=== PATIENT | male | born 1980 | race Caucasian/White ===

== ENCOUNTER → 2019-09-01 | Outpatient (CLI) | payer OTHER ==
--- NOTE | 2019-09-01 11:39 | 2DMMODE ---
[facility] [address] [place] [address] 2 D/M-MODE ECHOCARDIOGRAM Name: RAFIA GÓMEZ Room #: REG [facility]#: [id number] Admission: 09/01/19 Attend Phys: Curly Perry, Discharge: Date of : 78 Report #: [id number] THIS REPORT FOR: //name// APPROVED REPORT Study performed: 09/01/2019 10:12:20 EXAM: Comprehensive 2D, Doppler, and color-flow Echocardiogram Patient Location: Out-Patient Room #: Echo lab 2 Status: routine BSA: 2.11 HR: 66 bpm BP: 126/80 mmHg Rhythm: NSR Other Information Study Quality: Good Indications Syncope Echo Enhancing Agent Indication: Rule out Shunt Agent(s) / Amount(s) Used: Agitated Saline 7 cc 2D Dimensions RVDd: 38.75 mm IVSd: 8.41 (7-11mm) LVOT Diam: 26.17 (18-24mm) LVDd: 54.60 mm PWd: 7.76 (7-11mm) Ascending Ao: 36.58 (22-36mm) LVDs: 35.10 (25-40mm) Aortic Root: 33.76 mm IVC: 19.00 mm Volumes Left Atrial Volume (Systole) Single Plane 4CH: 30.45 mL Single Plane 2CH: 58.26 mL LA ESV Index: 25.00 mL/m2 Aortic Valve AoV Peak Art.: 1.36 m/s AO Peak Gr.: 7.38 mmHg LVOT Max P.38 mmHg LVOT Max V: 1.16 m/s KAMERON Vmax: 4.59 cm2 [facility] [address] [place] [address] 2 D/M-MODE ECHOCARDIOGRAM Name: RAFIA GÓMEZ Room #: [facility]#: [id number] Admission: 09/01/19 Attend Phys: Curly Perry, Discharge: Date of : 78 Report #: [id number] Mitral Valve E/A Ratio: 1.7 MV Decel. Time: 230.95 ms MV E Max Art.: 0.86 m/s MV A Art.: 0.52 m/s MV PHT: 66.98 ms IVRT: 101.50 ms Pulmonary Valve PV Peak Art.: 1.07 m/s PV Peak Gr.: 4.66 mmHg Pulmonary Vein P Vein S: 0.57 m/s P Vein A: 0.23 m/s P Vein D: 0.53 m/s P Vein A Dur.: 106.1 msec P Vein S/D Ratio: 1.08 Tricuspid Valve TR Peak Art.: 2.40 m/s TR Peak Gr.: 23.02 mmHg PA Pressure: 28.00 mmHg Left Ventricle The left ventricle is normal size. There is normal LV segmental wall motion. There is normal left ventricular wall thickness. Left ventricular systolic function is normal. The left ventricular ejection fraction is within the normal range. LVEF is 55-60%. The left ventricular diastolic function is normal. Right Ventricle The right ventricle is normal size. The right ventricular systolic function is normal. Atria The left atrium size is normal. PFO is noted with agitated saline injection. The right atrium size is normal. Aortic Valve The aortic valve is normal in structure. No aortic regurgitation is present. There is no aortic valvular stenosis. Mitral Valve The mitral valve is normal in structure. Trace mitral regurgitation. No evidence of mitral valve stenosis. Tricuspid Valve The tricuspid valve is normal in structure. Trace tricuspid [facility] [address] [place] [address] 2 D/M-MODE ECHOCARDIOGRAM Name: RAFIA GÓMEZ PONSFORD Room #: REG [facility]#: [id number] Admission: 09/01/19 Attend Phys: Curly Perry, Discharge: Date of : 78 Report #: [id number] regurgitation.There is no pulmonary hypertension. Estimated PAP 28 mmHg Pulmonic Valve The pulmonary valve is normal in structure. There is no pulmonic valvular regurgitation. Great Vessels The aortic root is normal in size. IVC is normal in size and collapses >50% with inspiration. Pericardium There is no pericardial effusion. <Conclusion> The left ventricle is normal size. There is normal left ventricular wall thickness. Left ventricular systolic function is normal. The left ventricular diastolic function is normal. The right ventricle is normal size. The left atrium size is normal. PFO is noted with agitated saline injection. The aortic valve is normal in structure. Trace mitral regurgitation. Trace tricuspid regurgitation.There is no pulmonary hypertension. Estimated PAP 28 mmHg <ELECTRONICALLY SIGNED> By: Nasir Meza MD 09/01/19 1139 [id number] Nasir Meza MD /INF
--- NOTE | 2019-09-04 12:15 | EEG ---
[facility] [place] [address] ELECTROENCEPHALOGRAM Name: RAFIA GÓMEZ Room #: REG [facility].#: [id number] Admission: 09/01/19 Attend Phys: Curly Perry MD Discharge: Date of : 78 Report #: [id number] THIS REPORT FOR: //name// CC: Micah Rawls Batchu DATE OF SERVICE: 09/01/2019 This patient is being evaluated for an episode of syncope. EEG is being done to evaluate the possibility of seizure. The EEG was done by placing the electrodes by standard 10-20 system of electrode placement. Both referential and sequential montages were used for recording. Background activity in this patient's EEG is about 9 Hz and 30 microvolt. Moderate amount of muscle artifact is present. Photic stimulation was unremarkable. The patient became drowsy and that is associated with bilateral slowing and vertex sharp waves. Throughout the record, no active epileptiform activity was noticed. IMPRESSION: This patient's EEG is unremarkable. Thank you very much for this referral. <ELECTRONICALLY SIGNED> By: Petar Tafoya MD 09/04/19 1215 [id number] Petar Tafoya MD /nt
== END ==
LOC: NEURO 08:55
DX: R55 Syncope and collapse (principal); R00.2 Palpitations